=== PATIENT | male | born 1985 | race Caucasian/White ===

== ENCOUNTER 2019-02-04 18:57 | Emergency (ER) | payer SELFPAY ==
[2019-02-04 18:58] VITALS: BP 136/89; PULSE 79; RESP 16; TEMP 36.8; O2SAT 99; BMI 25.7
--- NOTE | 2019-02-04 19:07 | ED.DCSUM_ITS ---
History of Present Illness Chief Complaint: General Illness Informant: Patient Onset: Yesterday Context: Gradual Onset Timing: Continuous Current Severity: Moderate Maximum Severity: Moderate Narrative: The patient is an otherwise healthy 33-year-old male who is on no daily medications that presents to the emergency department nausea, vomiting, diarrhea, and cough. He states his symptoms began yesterday. He states he began with some coughing. He is unsure if he had fever. He does admit to generalized weakness. He states today, had a few bouts of emesis and feels like he cannot even keep water down. He is also had loose, watery diarrhea. He has no history of prior abdominal surgery. He has no history of inflammatory bowel disease. He states he did take nausea medication from his girlfriend earlier today which helped for about 4 hours. Prior similar symptoms: No Recent Illness/Hospitalization: No Past Medical History - Allergies and Home Meds Allergies/Adverse Reactions: Allergies No Known Allergies Allergy (Verified 02/04/19 18:58) Primary Care Physician: Care Physician,No Primary [Primary Care Provider] - Prior records reviewed: Yes Past Medical History: None Surgical History: no surgical history Smoking Status: Current every day smoker Review of Systems General: Denies: Chills, Fever, Sweats Eyes: Denies: Visual changes - bilaterally, Diplopia ENT: Denies: Rhinorrhea, Sore throat Cardiovascular: Denies: Chest pain, Palpitations Respiratory: Reports: Cough. Denies: Dyspnea, Dyspnea on exertion Gastrointestinal: Reports: Nausea, Vomiting, Diarrhea. Denies: Abdominal pain, Melena, Hematochezia Genitourinary: Denies: Dysuria, Hematuria, Frequency Musculoskeletal: Denies: Back pain, Extremity Pain Skin: Denies: Rash, Wounds Neurological: Denies: Headache, Weakness, Numbness Physical Exam Vital Signs/Narrative: Vital Signs Temp Pulse Resp BP Pulse Ox 02/04/19 18:58 98.3 F 79 16 136/89 H 99 Inital Vital Signs reviewed: Yes General: Well nourished, Well developed, No Acute Distress Head: Normocephalic, Atraumatic Eyes: Perrl, EOMI ENT: Moist mucous membranes, No rhinorrhea Neck: Supple, Nontender Cardiovascular: Regular rate, Regular rhythm, No murmurs Respiratory: No distress, CTA bilaterally, Chest nontender Abdomen: Soft, Nontender, Nondistended, Normal bowel sounds Back: Nontender, Normal Inspection Extremities: Nontender, No edema Skin: Normal color, No rash Neurological: Alert, Oriented x3, Cranial nerves II-XII grossly intact, Normal Strength, Normal Sensation Psychological: Normal affect, Normal Mood Diagnostic/Tx/Re-eval Clinical Impression(s) from Imaging Studies Chest X-Ray 02/04/19 19:40 IMPRESSION: Normal x-ray examination of the chest. Electronically Signed: Alexander Harvey MD at 20:07 EST , Service support , Abnormal Lab Results 02/04/19 02/04/19 19:27 19:27 WBC 6.8 RBC 5.25 Hgb 15.8 Hct 46.1 MCV 87.8 MCH 30.1 MCHC 34.3 RDW Std Deviation 39.9 RDW Coeff of Lupe 12.3 Plt Count 251 MPV 9.2 Immature Gran % (Auto) 0.300 Neut % (Auto) 53.4 Lymph % (Auto) 34.9 [place] % (Auto) 4.7 Eos % (Auto) 6.3 H Baso % (Auto) 0.4 Absolute Neuts (auto) 3.6 Absolute Lymphs (auto) 2.38 Nucleated RBC % 0 Sodium 140 Potassium 3.8 Chloride 109 H Carbon Dioxide 23.0 Anion Gap 8 BUN 18 Creatinine 0.89 Estim Creat Clear Calc 124.56 Est GFR (MDRD) Af Amer 126 Est GFR (MDRD) Non-Af 104 BUN/Creatinine Ratio 20.3 H Glucose 107 H Calcium 8.7 Total Bilirubin 0.40 AST 25 ALT 43 Alkaline Phosphatase 110 Total Protein 7.8 Albumin 4.2 Globulin 3.6 Albumin/Globulin Ratio 1.2 - Medical Decision Making The patient symptoms do seem viral in nature. His abdomen is soft and nontender. He has had nausea, vomiting, and diarrhea along with cough. He is afebrile. Patient was given fluids and Phenergan. He had significant provement of his symptoms. Screening labs were obtained and were unremarkable. Chest x- ray shows no focal infiltrative process. On reevaluation, he is resting comfortably. At this point I do feel that he is safe for outpatient therapy. The patient will be treated with Phenergan and Bentyl. He was counseled on concerning symptoms and reasons to return. He will be discharged home. Impression 1. Gastroenteritis ED Disposition - Plan for ED Patient: Instructions: GASTROENTERITIS, Viral (5y-Adult) Prescriptions: Dicyclomine HCl [Bentyl] 20 mg PO TIDAC #20 cap Prescription Printed proMETHazine tablet [Phenergan] 25 mg PO Q6H PRN PRN #10 tab PRN Reason: Nausea Prescription Printed Referrals: Care Physician,No Primary [Primary Care Provider] -
[2019-02-04] MEDS: proMETHazine 25 MG/ML Syringe 12.5 MG IV (19:32)
[2019-02-04] MEDS: 0.9% Normal Saline 1,000 ML 1000 ML IV ×2 (19:32→20:28)
[2019-02-04 19:35] LABS: Absolute Lymphocyte Count 2.38 X10^3/uL (0.83-4.51); Absolute Neutrophil Count 3.6 X10^3/uL (2.0-7.7); Basophil# 0.03 X10^3/uL; Basophil% 0.4 % (0-1); Eosinophil# 0.43 X10^3/uL; Eosinophils% 6.3 % (0-5); Hematocrit 46.1 % (40-54); Hemoglobin 15.8 g/dL (13.0-16.5); Lymphocyte # 2.38 X10^3/ul (4.0); Lymphocyte % 34.9 % (19-41); Mean Corp Hgb Conc 34.3 g/dL (32-36); Mean Corpuscular Hgb 30.1 pg (27.0-32.0); Mean Corpuscular Volume 87.8 fL (80-94); Mean Platelet Vol. 9.2 fl (6.2-12.0); Monocyte# 0.32 X10^3/uL; Monocyte% 4.7 % (0-10); NRBC Flagged by Analyzer 0 % (0-5); Neutrophil # 3.64 X10^3/uL (2.7-7.7); Neutrophil % 53.4 % (47-70); Platelet Count 251 K/mm3 (150-450); RBC Distribution Width CV 12.3 % (11.6-14.6); RBC Distribution Width SD 39.9 fl (35.1-43.9); Red Blood Count 5.25 M/mm3 (4.6-6.2); White Blood Count 6.8 K/mm3 (4.4-11.0)
--- NOTE | 2019-02-04 19:40 | RAD_ITS ---
STUDY: X-RAY CHEST REASON FOR EXAM: Male, 33 years old. Cough. Chest pain. TECHNIQUE: PA and lateral views of the chest. COMPARISON: None. FINDINGS: The lungs are clear and expanded. There is no demonstrated pleural abnormality. Normal size heart. Normal mediastinum and cary. Normal visualized pulmonary arteries. Normal visualized aortic arch and descending thoracic aorta. Normal visualized thoracic spine. Normal visualized ribs, clavicles, and shoulders. There is no demonstrated abnormality of the visualized soft tissue structures of the upper abdomen. RAD/Chest PA and Lateral IMPRESSION: Normal x-ray examination of the chest. Electronically Signed: Alexander Harvey MD at 20:07 EST , Service support ,
[2019-02-04 20:00] LABS: ALB/GLOB Ratio 1.2 RATIO (0.9-2.4); AST(SGOT) 25 U/L (15-37); Alanine Aminotransfer ALT/SGPT 43 U/L (16-61); Albumin, Serum 4.2 g/dL (3.2-5.0); Alkaline Phosphatase 110 U/L (45-117); Anion Gap 8 (5-15); BUN 18 mg/dL (7-18); BUN/Creat Ratio 20.3 RATIO (10-20); Calcium,Total 8.7 mg/dL (8.5-10.1); Chloride 109 mmol/L (98-107); Creatinine, Serum 0.89 mg/dL (0.70-1.30); EST Glomerular Filtration Rate 104 mL/min (>60); Est Glom Filt Rate - Afr Amer 126 mL/min (>60); Estimated Creatinine Clearance 124.56 ml/min; Globulin 3.6 g/dL (2.2-4.2); Glucose 107 mg/dL (74-106); Potassium 3.8 mmol/L (3.5-5.1); Protein, Total 7.8 g/dL (6.4-8.2); Sodium Level 140 mmol/L (136-145)
[2019-02-04 20:28] VITALS: BP 119/80; PULSE 62; RESP 20; O2SAT 99
[2019-02-04 21:42] VITALS: BP 120/80; PULSE 60; RESP 16; O2SAT 100
== END 2019-02-04 21:43 | disposition home or self-care (01) ==
LOC: ED 19:30
PROVIDERS: Emergency Provider Emergency Medicine
DX: K52.9 Noninfective gastroenteritis and colitis, unspecified (principal); F17.200 Nicotine dependence, unspecified, uncomplicated
CPT/HCPCS: 71046; 80053; 85025; 99283; J7030; J7050; A4216

== ENCOUNTER 2021-03-08 14:13 | Outpatient (CLI) | payer MEDICARE, SELFPAY | END 2021-03-08 23:59 | disposition short-term general hospital (02) | LOC: LABSPEC 14:14 | PROVIDERS: Referring Provider Physician Assistant; Visit Provider Physician Assistant | DX: U07.1 COVID-19 (principal) | CPT/HCPCS: 87635; U0003; U0005 ==